=== PATIENT | female | born 1995 | race African-American/Black ===

== ENCOUNTER 2022-03-15 20:37 | Emergency (ER) | payer OTHER ==
[~2022-03-15] VITALS: Ht 165.1 cm; Wt 80.0 kg
[2022-03-15 22:57] VITALS: BP 121/65
== END 2022-03-15 22:58 | disposition home or self-care (01) ==
LOC: M ED 20:37
DX: S90.32XA Contusion of left foot, initial encounter (principal); W22.8XXA Striking against or struck by other objects, initial encounter; Z98.890 Other specified postprocedural states

== ENCOUNTER 2022-07-17 20:38 | Emergency (ER) | payer OTHER ==
[~2022-07-17] VITALS: Ht 165.1 cm; Wt 88.5 kg
[2022-07-17] MEDS ORDERED: DIPH25CA32 PO (21:29)
[2022-07-17] MEDS ORDERED: CETI-24 PO (21:29)
[2022-07-17 21:50] LABS: URINE PREG TEST NEGATIVE (NEGATIVE)
[2022-07-18 00:25] LABS: BASO % 0.3 % (0.0-1.0); EOS # 0.1 10^3/uL (0.0-0.5); EOS % 0.6 % (0.0-3.0); HEMOGLOBIN 13.1 g/dl (12.0-15.5); LYMPH # 2.4 10^3/uL (1.5-5.0); LYMPH % 26.9 % (24.0-44.0); MEAN CORPUSCULAR HEMOGLOBIN 30.3 pg (27.0-33.0); MEAN CORPUSCULAR VOLUME 94.7 fl (80.0-96.0); MONO # 0.5 10^3/uL (0.0-0.8); MONO % 5.9 % (2.0-8.0); NEUTROPHILS # 5.9 10^3/uL (1.5-8.5); NEUTROPHILS % 65.7 % (36.0-66.0); PLATELET COUNT, AUTOMATED 238 10^3/uL (150-450); RED BLOOD COUNT 4.33 10^6/uL (4.00-5.40); WHITE BLOOD COUNT 8.9 10^3/uL (4.0-10.0)
[2022-07-18 00:45] LABS: ALT/SGPT 30 U/L (12-78); BILIRUBIN,DIRECT < 0.1 MG/DL (0.0-0.2); BILIRUBIN,TOTAL 0.3 MG/DL (0.2-1.0); BLOOD UREA NITROGEN 18 MG/DL (7-18); CALCIUM LEVEL 9.1 MG/DL (8.5-10.1); CARBON DIOXIDE LEVEL 26 MEQ/L (21-32); CHLORIDE LEVEL 106 MEQ/L (98-107); CREATININE FOR GFR 0.97 MG/DL (0.55-1.30); GLOMERULAR FILTRATION RATE > 60.0 (>60); GLUCOSE, FASTING 105 MG/DL (70-100); LIPASE 78 U/L (73-393); POTASSIUM SERUM 3.8 MEQ/L (3.5-5.1); SODIUM LEVEL 139 MEQ/L (136-145)
[2022-07-18 01:58] VITALS: BP 129/76
== END 2022-07-18 02:26 | disposition left against medical advice (07) ==
LOC: M ED 20:38
DX: Z53.21 Procedure and treatment not carried out due to patient leaving prior to being seen by health care provider (principal)

== ENCOUNTER 2022-07-25 08:33 | Day surgery (SDC) | payer OTHER ==
[~2022-07-25] VITALS: Ht 166.4 cm; Wt 88.2 kg
[~2022-07-25 08:33] MED LIST: ALBU2.5V10 INH; CETI-24 PO; DIPH25CA32 PO; KETOROLAC 60MG 2ML VIAL As Ordered ONE; LIDOCAINE 2% 100MG/5ML SDV (FOR ANES.) As Ordered ONE; LR 1,000 ML IV SCH; NAPR-885 PO; ONDANSETRON 4MG 2ML VIAL As Ordered ONE; ceFAZolin SOD 2 GM in IV 1 EA IV ONE; fentaNYL 100 MCG/2 ML INJECTION As Ordered ONE; propofoL 200 MG/20 ML VIAL As Ordered ONE
[2022-07-25] MEDS ORDERED: MIDAZOLAM INJ 2MG/2ML VIAL (J2250 PER 1MG) As Ordered ONE (08:34)
[2022-07-25] MEDS ORDERED: dexameTHASONE 4 MG/ML 1ML VIAL (J1100 PER 1MG) As Ordered ONE (09:21)
[2022-07-25] MEDS ORDERED: BUPIVACAINE HCL 0.5% 30ML VIAL As Ordered ONE (09:21)
[2022-07-25] MEDS ORDERED: LIDOCAINE 1% SDV 30ML VIAL As Ordered ONE (09:21)
[2022-07-25 11:25] VITALS: BP 117/74
== END 2022-07-25 11:25 | disposition home or self-care (01) ==
LOC: M SDC 08:33
PROVIDERS: ATTEND Podiatrist Foot & Ankle Surgery
DX: M79.672 Pain in left foot (principal); J45.909 Unspecified asthma, uncomplicated; K21.9 Gastro-esophageal reflux disease without esophagitis; Z79.51 Long term (current) use of inhaled steroids; Z79.899 Other long term (current) drug therapy
CPT/HCPCS: 20680; 28270; 81025; J0690; J1885; J2250; J2405; J3010